=== PATIENT | female | born 1965 | race American Indian/Alaskan Native ===

== ENCOUNTER 2020-03-14 07:30 | Emergency (ER) | payer BC, OTHER ==
[2020-03-14] MEDS ORDERED: Ondansetron 4 MG/2 ML SDV IVPUSH ONE (07:51)
[2020-03-14] MEDS ORDERED: Sodium Chloride 0.9% 10 ML Syringe FLUSH PRN ×2 (07:51→08:44)
[2020-03-14] MEDS ORDERED: Sodium Chloride 0.9% 1,000 ML IV STA (07:51)
[2020-03-14] MEDS ORDERED: HYDROmorphone 1 MG/ML Syringe IVPUSH ONE (07:52)
[2020-03-14] MEDS ORDERED: Famotidine 20 MG/2 ML SDV IVPUSH ONE (07:53)
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
--- NOTE | 2020-03-14 08:28 | CR ---
Chest: Portable view of the chest was obtained. Comparison: No prior chest imaging is available. Heart size and mediastinum are normal. Lungs are clear with no acute parenchymal change. Bony structures are grossly intact. Impression: 1. Nothing acute is seen on portable chest x-ray. Diagnostic code #1
[2020-03-14] MEDS ORDERED: Metoclopramide 10 MG/2 ML SDV IVPUSH ONE (08:41)
[2020-03-14] MEDS ORDERED: Iopamidol 612 MG/ML 50 ML SDV IVPUSH ONE (08:44)
[2020-03-14] MEDS ORDERED: Iopamidol 612 MG/ML 100 ML Bottle IVPUSH ONE (08:44)
--- NOTE | 2020-03-14 09:33 | CT ---
CT chest Technique: Multiple axial sections through the chest were obtained. Intravenous contrast was utilized. Reconstructed coronal and sagittal images were obtained. Findings: Thoracic aorta shows no aneurysm. Small mediastinal lymph nodes are seen believed to be within normal limits. No definite coronary artery calcification is appreciated. Axillary regions show no adenopathy. No pericardial thickening is appreciated. Lung window settings were reviewed. No acute parenchymal process is appreciated. There is a small nodule being seen within the approximate superior segment of the right lower lobe measuring about 5-6 mm. Two adjacent subpleural nodules are noted within the lingula which measure within the 1-2 mm range which are felt to be incidental. No pleural effusions are seen. Bone window settings were reviewed which show no acute osseous finding. Impression: 1. Small nodule within the superior segment of the right lower lobe. This measures about 5-6 mm. Recommend repeat chest CT study without contrast in 1 year to confirm stability. 2. No other abnormality is appreciated. Diagnostic code #9 CT abdomen and pelvis Technique: Multiple axial sections were obtained from above the dome of the diaphragm inferiorly to the pubic symphysis. Multiple reconstructed sagittal and coronal images were obtained. Oral contrast not given. IV contrast was utilized. Findings: Liver shows no focal abnormality. Spleen appears normal. Adrenal glands show no discrete nodule. Kidneys show symmetric contrast enhancement. Two minimal low density lesions are noted within the left kidney which are too small to measure but most likely represent small cysts. Aorta shows no aneurysm. Gallbladder contains no calcified gallstones. No retroperitoneal adenopathy or mesenteric abnormalities are appreciated. No pelvic mass or adenopathy is appreciated. No free fluid or inflammatory change is seen. Minimal diverticulosis is seen within the sigmoid colon. Appendix is not visualized with certainty. Bone window settings were reviewed which show no acute osseous abnormality. Impression: 1. Minimal findings as noted above. 2. Nothing acute is appreciated on CT study of the abdomen and pelvis. Diagnostic code #2
[2020-03-14] MEDS ORDERED: Aspirin 81 MG Tab.Chew PO ONE (09:41)
[2020-03-14] MEDS ORDERED: Aspirin 81 MG Tab.Chew ONE (09:43)
[2020-03-14] MEDS ORDERED: Heparin Sodium 5,000 Units/ML Vial IVPUSH ONE ×2 (10:00→10:01)
[2020-03-14] MEDS ORDERED: Heparin Sodium/D5W 25,000 UNITS/500 ML BAG IV SCH (10:15)
== END 2020-03-14 10:50 ==
LOC: JD.ED 07:30
DX: I21.4 Non-ST elevation (NSTEMI) myocardial infarction (principal); N28.9 Disorder of kidney and ureter, unspecified; R79.1 Abnormal coagulation profile; F17.210 Nicotine dependence, cigarettes, uncomplicated; Z88.8 Allergy status to other drugs, medicaments and biological substances; Z20.822 Contact with and (suspected) exposure to COVID-19
CPT/HCPCS: 36415; 71045; 71260; 74177; 80053; 83690; 84484; 85025; 85379; 85730; 86140; 87635; 93005; 96365; 96375; 99285; A9270; J1170; J1644; J2405; J2765; J3490; J7030; Q9967; 93010; 99284; U0002

== ENCOUNTER 2022-05-26 04:39 | Emergency (ER) | payer BC, OTHER ==
[2022-05-26] MEDS ORDERED: Alum Hydrox/Mag Hydrox/Simeth 30 ML, Lidocaine 2% 15 ML PO ONE ×2 (04:59)
[2022-05-26] MEDS ORDERED: Ondansetron 4 MG/2 ML SDV IVPUSH ONE (05:14)
[2022-05-26 07:01] LABS: CORONAVIRUS COVID-19 NAA NEGATIVE (NEGATIVE)
== END 2022-05-26 07:04 | disposition home or self-care (01) ==
LOC: JD.ED 04:39 → MERGE 04:39 → JD.ED 07:04
DX: R07.2 Precordial pain (principal); Z72.0 Tobacco use; Z20.822 Contact with and (suspected) exposure to COVID-19
CPT/HCPCS: 0241U; 36415; 71045; 80053; 84484; 85025; 93005; 96374; 99285; A9270; J2405; 93010; 99284